=== PATIENT | male | born 1990 | race Caucasian/White ===

== ENCOUNTER 2016-06-09 15:52 | Emergency (ER) | payer MEDICAID ==
[~2016-06-09] VITALS: Ht 177.8 cm; Wt 75.0 kg
[2016-06-09 16:09] VITALS: BP 136/89
== END 2016-06-09 18:11 | disposition home or self-care (01) ==
LOC: ER 16:33
DX: R51 Headache (principal); G89.29 Other chronic pain; F12.10 Cannabis abuse, uncomplicated
CPT/HCPCS: 99283

== ENCOUNTER 2018-05-22 08:15 | Emergency (ER) | payer MEDICAID ==
[~2018-05-22] VITALS: Ht 177.8 cm; Wt 100.0 kg
[2018-05-22 10:34] VITALS: BP 141/79
== END 2018-05-22 11:47 | disposition home or self-care (01) ==
LOC: ER 08:15
DX: R51 Headache (principal); F12.10 Cannabis abuse, uncomplicated
CPT/HCPCS: 99282